=== PATIENT | female | born 1995 | race Caucasian/White ===

== ENCOUNTER 2021-11-10 17:50 | Emergency (ER) | payer OTHER ==
[~2021-11-10] VITALS: Ht 165.1 cm; Wt 83.9 kg
[2021-11-10] MEDS ORDERED: ONDA4ODT MM (20:48)
[2021-11-13] MEDS ORDERED: POLYTRIM EYE DR10 M1 LEFTEYE ×2 (09:32→09:33)
== END 2021-11-10 20:58 | disposition home or self-care (01) ==
LOC: ER 17:50
DX: S06.9X9A Unspecified intracranial injury with loss of consciousness of unspecified duration, initial encounter (principal); S00.12XA Contusion of left eyelid and periocular area, initial encounter; V89.2XXA Person injured in unspecified motor-vehicle accident, traffic, initial encounter
CPT/HCPCS: 70450; 70486; 72125; 90471; 90714; 93005; 93010; 99284-25; A9270